=== PATIENT | female | born 2000 | race Caucasian/White ===

== ENCOUNTER 2024-10-26 20:07 | Outpatient (CLI) | payer OTHER ==
[~2024-10-26] VITALS: Ht 149.9 cm; Wt 53.1 kg
[2024-10-26 20:36] VITALS: BP 91/59; O2SAT 97
[2024-10-26 21:21] LABS: BASO % 0.3 % (0.1-1.2); EOS # 0.18 (0.04-0.54); EOS % 1.7 % (0.7-7.0); LYMPH # 2.13 (1.18-3.74); LYMPH % 20.3 % (19.3-53.1); MEAN PLATELET VOLUME 9.30 fl (9.4-12.4); MONO # 0.83 (0.24-0.82); MONO % 7.9 % (4.7-12.5); NEUT # 7.25 (1.56-6.13); NEUT % 69.0 % (34.0-71.1); RED CELL DISTRIBUTION WIDTH 13.2 % (11.6-14.4)
[2024-10-26 21:23] LABS: URINE APPEARANCE Clear; URINE BILIRRUBIN Negative (NEGATIVE); URINE BLOOD Negative; URINE COLOR Yellow; URINE KETONE Trace (NEGATIVE); URINE LEUKOCYTE Small; URINE NITRATE Negative; URINE PROTEIN 30 (NEGATIVE); URINE UROBILINOGEN 1.0 E.U./dl
[2024-10-26] MEDS ORDERED: PRENATAL TABLE1 EAC4 PO (21:23)
[2024-10-26] MEDS ORDERED: IRON236 MG PO (21:23)
[2024-10-26 21:24] LABS: URINE BACTERIA 2473.1 uL (0.0-1933); URINE CAST 1.46 uL (0.0-1.40); URINE EPITHELIAL CELLS 46.1 uL (0.0-38.8); URINE GLUCOSE 250 MG/DL (NEGATIVE); URINE RBC 7.6 uL (0.0-20.8); URINE WBC 87.9 uL (0.0-23.2)
[2024-10-26 21:34] LABS: TYPE CELLS SQUAMOUS; URINE MUCUS MODERATE
[2024-10-26 21:40] LABS: INR 0.98
[2024-10-26 21:45] LABS: ALT/SGPT 21.0 U/L (12-78); AST/SGOT 22.0 U/L (15-37); BILIRUBIN TOTAL 0.63 mg/dL (0.3-1.2); BUN CREA RATIO 13.0 (7.0-25.0); CREATININE SERUM 0.56 mg/dL (0.55-1.02); GFR 133.0; GLOBULINA 3.7 G/DL (2.4-3.5); GLUCOSE FASTING 87.0 mg/dL (65-100); OSMOLALITY SERUM 279.0 MOSM/KG (275-295)
[2024-10-26] MEDS ORDERED: CEFAZOLIN SODIUM 1,000 MG VIAL IV SCH (22:00)
[2024-10-26] MEDS ORDERED: RINGERS SOLUTION,LACTATED 1,000 ML IV SCH (23:15)
[2024-10-26 23:25] VITALS: BP 92/58
[2024-10-27 03:29] VITALS: BP 91/60
[2024-10-27] MEDS ORDERED: CEFAZOLIN SODIUM 1,000 MG VIAL IV SCH (06:00)
[2024-10-27 07:36] VITALS: BP 88/54
[2024-10-27 11:30] VITALS: BP 96/62
[2024-10-27] MEDS ORDERED: CEPHALEXIN500 MG PO (11:41)
[2024-10-27] MEDS ORDERED: VITABEX IRON C1 EACH PO (11:41)
[2024-10-27 12:49] VITALS: BP 96/62
== END 2024-10-27 12:49 | disposition home or self-care (01) ==
LOC: OBS/DEL 20:07
PROVIDERS: ATTEND Specialist
DX: O26.892 Other specified pregnancy related conditions, second trimester (principal); R10.2 Pelvic and perineal pain; Z3A.26 26 weeks gestation of pregnancy

== ENCOUNTER 2025-01-19 12:24 | Inpatient (IN) | payer OTHER ==
[~2025-01-19] VITALS: Ht 149.9 cm; Wt 59.9 kg
[2025-01-19 11:51] VITALS: BP 103/69; BP 109/69
[~2025-01-19 12:24] MED LIST: CEPHALEXIN500 MG PO; IRON236 MG PO; PRENATAL TABLE1 EAC4 PO; VITABEX IRON C1 EACH PO
[2025-01-19] MEDS ORDERED: RINGERS SOLUTION,LACTATED 1,000 ML IV SCH (12:30)
[2025-01-19 13:41] LABS: BASO % 0.3 % (0.1-1.2); EOS # 0.08 (0.04-0.54); EOS % 0.6 % (0.7-7.0); LYMPH # 1.63 (1.18-3.74); LYMPH % 11.3 % (19.3-53.1); MEAN PLATELET VOLUME 10.10 fl (9.4-12.4); MONO # 0.54 (0.24-0.82); MONO % 3.7 % (4.7-12.5); NEUT # 12.05 (1.56-6.13); NEUT % 83.4 % (34.0-71.1); RED CELL DISTRIBUTION WIDTH 12.7 % (11.6-14.4)
[2025-01-19 13:42] LABS: URINE APPEARANCE Clear; URINE BILIRRUBIN Negative (NEGATIVE); URINE BLOOD Negative; URINE COLOR Yellow; URINE GLUCOSE Negative (NEGATIVE); URINE KETONE Trace (NEGATIVE); URINE LEUKOCYTE Small; URINE NITRATE Negative; URINE PROTEIN 30 (NEGATIVE); URINE UROBILINOGEN 1.0 E.U./dl
[2025-01-19 13:45] LABS: URINE BACTERIA 499.2 uL (0.0-1933); URINE EPITHELIAL CELLS 134.1 uL (0.0-38.8); URINE RBC 4.6 uL (0.0-20.8); URINE WBC 67.0 uL (0.0-23.2)
[2025-01-19 14:06] LABS: URINE CAST 0.14 uL (0.0-1.40)
[2025-01-19 14:07] LABS: URINE YEAST MODERATE /hpf
[2025-01-19 15:22] VITALS: BP 110/69
[2025-01-19] MEDS ORDERED: MORPHINE SULFATE 4 MG/ML CARTRIDGE IV PRN (19:00)
[2025-01-19 20:36] VITALS: BP 106/69
[2025-01-19 23:16] VITALS: BP 118/66; O2SAT 100
[2025-01-20] VITALS (7 sets, daily range): BP systolic 100–114; BP diastolic 50–69
[2025-01-20] MEDS ORDERED: MORPHINE SULFATE 4 MG/ML CARTRIDGE IV ONE (02:15)
[2025-01-20] MEDS ORDERED: LIDOCAINE HCL 1% 10ML VIAL ONE (02:56)
[2025-01-20] MEDS ORDERED: CHLORHEXIDINE GLUCONATE 120 ML BOTTLE TOP ONE ×2 (02:56→05:00)
[2025-01-20] MEDS ORDERED: ERYTHROMYCIN BASE OPHT 1GM EACH TUBE OP ONE ×2 (02:56→05:00)
[2025-01-20] MEDS ORDERED: OXYTOCIN 20 UNITS/1000ML RL PIGGYBAG IV ONE (02:56)
[2025-01-20] MEDS ORDERED: OXYTOCIN 20 UNITS/500ML RL PIGGYBAG IV ONE (03:37)
[2025-01-20] MEDS ORDERED: OXYTOCIN 500 ML IV SCH (04:00)
[2025-01-20 12:32] LABS: BASO % 0.2 % (0.1-1.2); EOS # 0.06 (0.04-0.54); EOS % 0.2 % (0.7-7.0); LYMPH # 1.42 (1.18-3.74); LYMPH % 5.8 % (19.3-53.1); MEAN PLATELET VOLUME 10.10 fl (9.4-12.4); MONO # 1.09 (0.24-0.82); MONO % 4.5 % (4.7-12.5); NEUT # 21.17 (1.56-6.13); NEUT % 87.0 % (34.0-71.1); RED CELL DISTRIBUTION WIDTH 12.8 % (11.6-14.4)
[2025-01-21 01:44] VITALS: BP 103/71
[2025-01-21 08:00] VITALS: BP 114/75
[2025-01-21 16:24] VITALS: BP 107/74
[2025-01-22 00:09] VITALS: BP 105/69
[2025-01-22 08:13] VITALS: BP 108/73
== END 2025-01-22 12:19 | disposition home or self-care (01) | DRG 807 ==
LOC: OBS/DEL 12:24 → OB/GYN 21:06 → LDR 21:06 → OB/GYN 01-20 06:04
PROVIDERS: Obstetrics & Gynecology; ADMIT Specialist; ATTEND Specialist
PROC: 4A1HXCZ Monitoring of Products of Conception, Cardiac Rate, External Approach (ICD-10-PCS; 2025-01-19)
PROC: 10E0XZZ Delivery of Products of Conception, External Approach (ICD-10-PCS; principal; 2025-01-20)
DX: O80 Encounter for full-term uncomplicated delivery (principal); Z37.0 Single live birth; Z3A.38 38 weeks gestation of pregnancy